=== PATIENT | male | born 1940 | race Caucasian/White ===

== ENCOUNTER 2017-07-17 13:23 | Emergency (ER) | payer OTHER ==
[~2017-07-17] VITALS: Ht 167.6 cm; Wt 72.6 kg
[2017-07-17 13:34] VITALS: BP 0/0
[2017-07-17 13:35] VITALS: BP 0/0
[2017-07-17] MEDS ORDERED: Calcium Chloride 10% 10ml carpuject IVP ONE (13:48)
[2017-07-17] MEDS ORDERED: Sodium Bicarbonate 50ml Carp ONE (13:48)
--- NOTE | 2017-07-17 13:49 | Emergency Room Report ---
History of Present Illness General Chief Complaint: CPR Source: EMS Present Illness HPI Patient presents emergency department today in full cardiopulmonary arrest. According to EMS patient was found down on the floor and apparently had aspirated. Initially patient was gagging and then subsequently 1 is full cardiopulmonary arrest. No further history is available and patient was brought here in full cardiopulmonary arrest with CPR in progress. Patient was being ventilated through Ambu bag and mask. Symptoms are critical. Allergies: Coded Allergies: No Known Allergies (Unverified , 01/30/14) Patient History Past Medical History: unable to obtain Past Surgical History: unable to obtain Social History Narrative unable to obtain Nursing Documentation-PMH Hx Neurological Problems: Yes Review of Systems All Other Systems: limited - Patient critical Physical Exam patient in full cardiopulmonary arrest. Being ventilated. CPR in progress. no vital sign available at this time. General Appearance: other - Critical Head: atraumatic Eyes: bilateral eye other - Fixed dilated ENT: moist mucus membranes Neck: supple Respiratory: other - Good breath sounds with ventilation Cardiovascular #1: other - Pulseless Gastrointestinal: distended Genitourinary: deferred Musculoskeletal: normal inspection Neurologic: other - Unable to obtain Psychiatric: other Skin: other - Cold Procedures CPR/Code Blue CPR/Code Blue Narrative Patient presented to the emergency department for cart a pulmonary arrest. CPR was in progress. Chest compressions are given. Patient had a intraosseous line established on patient's left tibia in the field by paramedics. Patient was given 3 doses of epinephrine and bicarbonate CPR. Unfortunately we were unable to adequately resuscitated patient. Patient remained in PEA and bedside cardiac ultrasound confirmed no cardiac activity. Therefore further resuscitation efforts was deemed to be futile. Cold was called. Patient was pronounced at 1334. Intubation Intubation : Consent: Emergent Intubation Method: orotracheal Tube Size (cm): 8.0 Breath Sounds after Intubation: equal Intubation Complications: no complications Post Intubation Xray: No Attempts: One Patient Tolerated: Well Complications: None Medical Decision Making Diagnostic Impression: Primary Impression: For cardiopulmonary resuscitation Additional Impressions: Cardiopulmonary arrest ER Course Patient presented emergency department in full cart a pulmonary arrest. Patient was resuscitated. Unfortunately despite our efforts patient . Patient was pronounced . Disposition: DAYANNA DIAS M.D. July 17, 2017 13:49
== END 2017-07-17 13:55 | disposition expired ==
LOC: EDBD 13:23 → EDUNIT# 13:23 → EMR 13:47
DX: I46.9 Cardiac arrest, cause unspecified (principal)
CPT/HCPCS: 31500; 92950; 99285; J0171; J3490